=== PATIENT | female | born 1980 | race Caucasian/White ===

== ENCOUNTER 2018-09-05 15:05 | Day surgery (SDC) | payer OTHER ==
[2018-09-05] MEDS: LACTATED RINGER'S 1,000 ML IV (15:52)
[2018-09-05] MEDS ORDERED: FENTAnyl 50 MCG/ML VIAL (17:53)
[2018-09-05] MEDS ORDERED: MIDAZOLAM 1 MG/ML 2 ML INJ (17:53)
[2018-09-05] MEDS ORDERED: ROCURONIUM 50 MG INJ (17:53)
[2018-09-05] MEDS ORDERED: PROPOFOL 20 ML (17:53)
[2018-09-05] MEDS ORDERED: FENTAnyl 50 MCG/ML VIAL IV ×2 (18:00)
[2018-09-05] MEDS ORDERED: HYDROmorphONE 1 MG/5 ML IV SYRINGE IV ×3 (18:00)
[2018-09-05] MEDS ORDERED: METOCLOPRAMIDE 10 MG INJ IV (18:00)
[2018-09-05] MEDS ORDERED: ONDANSETRON 4 MG INJ (18:05)
[2018-09-05] MEDS ORDERED: METOCLOPRAMIDE 10 MG INJ (18:05)
[2018-09-05] MEDS ORDERED: SUGAMMADEX SODIUM 200 MG/2 ML VIAL IV (18:05)
[2018-09-05] MEDS ORDERED: DEXAMETHASONE 4 MG/ML 5 ML INJ (18:05)
[2018-09-05] MEDS ORDERED: KETOROLAC 30 MG INJ (18:05)
[2018-09-05] MEDS: ONDANSETRON 4 MG INJ IV (18:40)
[2018-09-05] MEDS: FENTAnyl 50 MCG/ML VIAL IV (18:40)
== END 2018-09-05 20:22 | disposition home or self-care (01) ==
LOC: SDS 15:05
DX: J35.01 Chronic tonsillitis (principal); G47.33 Obstructive sleep apnea (adult) (pediatric)
CPT/HCPCS: 42826; 84703; 88304